=== PATIENT | male | born 1945 | race Caucasian/White ===

== ENCOUNTER 2018-03-22 20:33 | Emergency (ER) | payer OTHER, MEDICARE ==
[2018-03-22 20:40] VITALS: BP 124/88
[2018-03-22] MEDS ORDERED: TDAP ADULT 0.5 ML INJ (BOOSTRIX) IM ONE (21:21)
[2018-03-22] MEDS ORDERED: AMOXICILLIN/CLAVULANATE POT 875/125 MG TAB PO ONE (21:21)
--- NOTE | 2018-03-22 21:21 | EDPHY ---
General Time Seen by Provider: 03/22/18 21:08 Narrative: CHIEF COMPLAINT: Toe injury HISTORY OF PRESENT ILLNESS: Patient complains of injury to the left great toe. He was attempting to rotated chair, when it got caught on the still. This elevated the left toenail significantly. He felt a sudden onset of sharp pain and bleeding. No numbness , tingling or weakness. No direct trauma to the toe itself. No pain elsewhere. Able to bear weight with a limp. He applied a dressing to it. He has a history of diabetes type 2 but does not smoke cigarettes. No previous trauma to the area. No history of neuropathy in the leg. No other associated complaints or modifying factors. TIME OF INJURY: Less than 2 hr ago TETANUS STATUS: Questionable MEDICAL/SURGICAL/SOCIAL HISTORY: Type 2 diabetes, hypertension. Orthopedic surgeries. Never smoker. Lives here independently with his spouse REVIEW OF SYSTEMS: Ten systems reviewed and are negative unless otherwise noted in the HPI EXAMINATION General Appearance: Alert, no distress Head: normocephalic, atraumatic Cardiovascular: Symmetric radial pulses 2+. Brisk cap refill. Neurological: A&O, sensory symmetric in the lower extremity, strength of the great toe symmetric. Skin: Warm and dry, no rash. No puncture or laceration Extremities: Tenderness to the left great toe with partial avulsion of the toenail. No pulsatile bleeding. No bony tenderness of the foot DIFFERENTIAL DIAGNOSES: Including but not limited to toenail avulsion, partial toenail avulsion, toe fracture MDM: 9:10 p.m. Partial avulsion of the left great toenail. No bony tenderness or pain. His vital signs are within normal limits. He is in no acute distress. He will need completion of the avulsion. I have administered a digital block to the toe. He will need his tetanus updated and I have commenced Augmentin therapy as he is a type 2 diabetic with some hyperglycemia recently. 9:45 p.m. I have completed the partial avulsion of the left great toenail. There is no injury to the nail bed. Bleeding is controlled without difficulty. I have irrigated the wound bed. Sterile dressing in place. He is in a postoperative shoe and ambulatory without difficulty. Short course of pain medication provided. I have also started him on Augmentin due to the location of the wound and his diabetic status. Recommend 48 hr wound check and follow up with primary care physician. ED precautions for signs of infection or increasing pain. He is comfortable this plan and will follow up accordingly. Discharged in stable condition SUPERVISION: This patient was independently evaluated without direct involvement of or examination by the attending physician. ED Precautions: Worsening pain. Erythema, edema, cyanosis, pallor, paresthesia or anesthesia. - History Smoking Status: Never smoked - Objective Vital Signs: Initial Vital Signs Temperature (C) 97.7 F 03/22/18 20:37 Heart Rate 76 03/22/18 20:37 Respiratory Rate 18 03/22/18 20:37 Blood Pressure 124/88 H 03/22/18 20:37 O2 Sat (%) 92 03/22/18 20:37 O2 Delivery Mode Room Air Allergies/Adverse Reactions: No Known Allergies Allergy (Unverified 03/22/18 20:40) Home Medications: Medication Instructions Recorded Amoxicillin/Clavulanate Pot 875 mg PO BID #14 tab 03/22/18 [Augmentin 875 MG TAB (*)] Aspirin [Aspirin 81mg (*)] 81 mg PO DAILY 03/22/18 Atorvastatin Calcium [Lipitor 20 20 mg PO DAILY 03/22/18 mg (*)] Dulaglutide [Trulicity] 1.5 mg SQ 03/22/18 Lisinopril/Hctz 20/12.5MG 1 ea PO DAILY 03/22/18 [Zestoretic/Prinzide 20/12.5MG (*)] Metformin HCl [Metformin 1000 mg] 1,000 mg PO BID 03/22/18 Zolpidem Tartrate [Ambien] 10 mg PO 03/22/18 amLODIPine BESYLATE [Amlodipine 5 mg PO 03/22/18 Besylate] glipiZIDE [Glucotrol] 10 mg PO DAILY 03/22/18 Medications Given: Discontinued Medications Amoxicillin/Clavulanate Potassium (Augmentin 875mg) 875 mg PO EDNOW ONE PRN Reason: Protocol Stop: 03/22/18 21:22 Last Admin: 03/22/18 21:28 Dose: 875 mg Diphtheria/Tetanus/Acell Pertussis (Boostrix) 0.5 ml IM .ONCE ONE Stop: 03/22/18 21:22 Last Admin: 03/22/18 21:28 Dose: 0.5 ml Oxycodone/Acetaminophen (Percocet 5/325mg Prepack#4) 1 btl TAKEOLAYINKAE EDNOW ONE Stop: 03/22/18 21:23 Last Admin: 03/22/18 21:29 Dose: 1 btl Departure - Departure Disposition: Home, Routine, Self-Care Clinical Impression: Avulsion of toenail of left foot Condition: Good Instructions: Oxycodone/Acetaminophen (By mouth), Amoxicillin/Clavulanate Potassium (By mouth), Nail Avulsion (ED) Additional Instructions: 1. Augmentin as prescribed to completion 2. Pain medication as prescribed as needed 3. ED precautions for any worsening pain, redness, warmth or fever 4. Follow up with primary care physician on Friday or Friday Referrals: Tip Christensen MD [Primary Care Provider] - As per Instructions Phoenix Sharpe MD [Medical Doctor] - As per Instructions Prescriptions: Amoxicillin/Clavulanate Pot [Augmentin 875 MG TAB (*)] 875 mg PO BID #14 tab
[2018-03-22] MEDS ORDERED: OXYCODONE/APAP 5/325MG PREPACK#4 BTL TAKEHOME ONE (21:22)
== END 2018-03-22 21:35 | disposition home or self-care (01) ==
PROC: 3E0T3BZ Introduction of Anesthetic Agent into Peripheral Nerves and Plexi, Percutaneous Approach (ICD-10-PCS; principal; 2018-03-22)
DX: S91.202A Unspecified open wound of left great toe with damage to nail, initial encounter (principal); E11.9 Type 2 diabetes mellitus without complications; I10 Essential (primary) hypertension; Z79.82 Long term (current) use of aspirin; Z79.84 Long term (current) use of oral hypoglycemic drugs; Z23 Encounter for immunization; W23.0XXA Caught, crushed, jammed, or pinched between moving objects, initial encounter